=== PATIENT | female | born 1945 | race Caucasian/White ===

== ENCOUNTER 2019-01-20 18:56 | Emergency (ER) | payer MEDICARE, OTHER ==
[2019-01-20 19:09] VITALS: O2SAT 97
--- NOTE | 2019-01-20 19:11 | ERPHSYRPT ---
- History of Present Illness Time Seen by Provider: 01/20/19 19:10 Source: patient, EMS Exam Limitations: no limitations Patient Subjective Stated Complaint: Pt states "I was gardening and I just went over and landed on my left side. ONly my hip hurts." Triage Nursing Assessment: PT arrived via ambulance and placed in room 6. Pt alert and oriented X 3, skin pwd PT able to speak in clear full sentences. PT in no apparent respiratory distress. PT has tenderness to left hip, CSM X 4 Physician History: 73 y/o white female was outside gardening and turned, lost balance and fell onto left hip. pt brought into ED via ambulance. denies dizziness, denies head injury, denies cp. Occurred: just prior to arrival Reason for Fall: lost balance Injuries/Pain Location: pelvis, lower extremity (left) Loss of Consciousness: no loss of consciousness Severity of Pain-Max: moderate Severity of Pain-Current: moderate Modifying Factors: Improves With: movement (hurts) Associated Symptoms (Fall): extremity injury (left hip), muscle spasms, trouble walking, No abdominal pain, No back pain, No confusion, No chest pain, No lightheadedness, No seizures, No shortness of breath Allergies/Adverse Reactions: No Known Drug Allergies Allergy (Verified 01/20/19 19:09) Home Medications: No Home Meds [No Home Meds] 1 [facility] 06/06/14 [History] Hx Tetanus, Diphtheria Vaccination/Date Given: No Hx Influenza Vaccination/Date Given: No Hx Pneumococcal Vaccination/Date Given: No Immunizations Up to Date: Yes - Review of Systems Constitutional: No Symptoms Eyes: No Symptoms Ears, Nose, & Throat: No Symptoms Respiratory: No Symptoms Cardiac: No Symptoms Abdominal/Gastrointestinal: No Symptoms Genitourinary Symptoms: No Symptoms Musculoskeletal: Fall, Injury Skin: No Symptoms Neurological: No Symptoms Psychological: No Symptoms Endocrine: No Symptoms Hematologic/Lymphatic: No Symptoms Immunological/Allergic: No Symptoms All Other Systems: Reviewed and Negative - Past Medical History Pertinent Past Medical History: No Neurological History: No Pertinent History ENT History: No Pertinent History Cardiac History: No Pertinent History Respiratory History: No Pertinent History Endocrine Medical History: No Pertinent History Musculoskeletal History: No Pertinent History GI Medical History: No Pertinent History History: No Pertinent History Psycho-Social History: No Pertinent History Female Reproductive Disorders: No Pertinent History - Past Surgical History Past Surgical History: Yes Neuro Surgical History: No Pertinent History Cardiac: No Pertinent History Respiratory: No Pertinent History Gastrointestinal: No Pertinent History Genitourinary: No Pertinent History Musculoskeletal: Orthopedic Surgery Female Surgical History: No Pertinent History - Social History Smoking Status: Never smoker Exposure to second hand smoke: No Drug Use: none Patient Lives Alone: No - Female History Hx Now: No - Nursing Vital Signs Nursing Vital Signs: Initial Vital Signs Temperature 98.2 F 01/20/19 19:03 Pulse Rate 88 01/20/19 19:03 Respiratory Rate 18 01/20/19 19:03 Blood Pressure 152/83 01/20/19 19:03 O2 Sat by Pulse Oximetry 97 01/20/19 19:03 Pain Scale Pain Intensity 4 - Eda Coma Score Best Eye Response ([place]): (4) open spontaneously Best Verbal Response (Eda): (5) oriented Best Motor Response (Eda): (6) obeys commands Eda Total: 15 - Physical Exam General Appearance: no apparent distress, alert, anxiety Head Injury: no evidence of injury, No active bleeding, No Murcia's Sign, No contusions, No ecchymosis Eye Exam: PERRL/EOMI, eyes nml inspection ENT Exam: airway nml, nml ext.inspection Neck Exam: supple, trachea midline, full range of motion, normal alignment, normal inspection Respiratory/Chest Exam: normal breath sounds, No chest tenderness, No respiratory distress, No ecchymosis, No crepitus Cardiovascular Exam: normal heart sounds Gastrointestinal Exam: soft, normal bowel sounds, No tenderness Rectal Exam: not done Back Exam: normal inspection, normal range of motion, No CVA tenderness, No vertebral tenderness Extremity Exam: limited range of motion (left hip), hip tenderness (left), tenderness (left mid to upper femur) Neurologic Exam: alert, oriented x 3, cooperative, 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 II-XII nml as tested, normal mood/affect Skin Exam: normal color, warm, dry SpO2 Interpretation: normal SpO2: 97 O2 Delivery: Room Air Ordered Tests: Active Orders 24 hr Category Date Time Status Catheter-[place] Hussein STAT Care 01/20/19 19:58 Active EKG-ER Only STAT Care 01/20/19 19:58 Active IV Insertion STAT Care 01/20/19 19:58 Active CHEST 1 VIEW (PORTABLE) Stat Exams 01/20/19 19:59 Taken FEMUR Stat Exams 01/20/19 19:12 Taken HIP UNI (2V) INCL PEL IF DONE Stat Exams 01/20/19 19:12 Taken CBC W DIFF Stat Lab 01/20/19 20:33 Completed CMP Stat Lab 01/20/19 20:33 Completed PROTIME WITH INR Stat Lab 01/20/19 20:33 Completed Medication Summary Generic Name Dose Route Start Last Admin Trade Name Freq PRN Reason Stop Dose Admin Sodium Chloride 1,000 mls @ 100 mls/hr 01/20/19 20:00 01/20/19 20:22 Sodium Chloride 0.9% 1000 Ml IV 02/19/19 19:59 100 mls/hr .Q10H ANDREAS Administration Discontinued Medications Generic Name Dose Route Start Last Admin Trade Name Freq PRN Reason Stop Dose Admin Hydromorphone HCl 0.5 mg 01/20/19 19:58 01/20/19 20:21 Hydromorphone 1 Mg/Ml Ampule IV 01/20/19 19:59 0.5 mg STAT ONE Administration Hydromorphone HCl Confirm 01/20/19 20:17 Hydromorphone 1 Mg/Ml Ampule Administered 01/20/19 20:18 Dose 1 mg .ROUTE .STK-MED ONE Morphine Sulfate 4 mg 01/20/19 19:58 01/20/19 20:22 Morphine Sulfate 4 Mg Inj IV 01/20/19 19:59 Not Given STAT ONE Ondansetron HCl 4 mg 01/20/19 20:17 01/20/19 20:21 Zofran 4 Mg/2 Ml Vial IV 01/20/19 20:18 4 mg STAT ONE Administration Ondansetron HCl Confirm 01/20/19 20:16 Zofran 4 Mg/2 Ml Vial Administered 01/20/19 20:17 Dose 4 mg .ROUTE .STK-MED ONE Lab/Rad Data: Laboratory Result Diagrams 01/20/19 20:33 01/20/19 20:33 Laboratory Results 01/20/19 01/20/19 01/20/19 Range/Units 20:33 20:33 20:33 WBC 7.7 (4.0-10.5) K/mm3 RBC 3.96 L (4.1-5.4) M/mm3 Hgb 12.4 (12.0-16.0) gm/dl Hct 36.8 (35-47) % MCV 92.9 (78-100) fl MCH 31.3 (26-32) pg MCHC 33.7 (32-36) g/dl RDW 13.9 (11.5-14.0) % Plt Count 265 (150-450) K/mm3 MPV 9.7 H (6-9.5) fl Gran % 74.1 H (36.0-66.0) % Eos # (Auto) 0.05 (0-0.5) Absolute Lymphs (auto) 1.33 (1.0-4.6) Absolute Monos (auto) 0.60 (0.0-1.3) Lymphocytes % 17.2 L (24.0-44.0) % Monocytes % 7.8 (0.0-12.0) % Eosinophils % 0.6 (0.00-5.0) % Basophils % 0.3 (0.0-0.4) % Absolute Granulocytes 5.72 (1.4-6.9) Basophils # 0.02 (0-0.4) PT 12.5 H (9.95-12.35) SECONDS INR 1.07 (0.8-3.0) Sodium 131 L (137-145) mmol/L Potassium 4.0 (3.5-5.1) mmol/L Chloride 98 (98-107) mmol/L Carbon Dioxide 21 L (22-30) mmol/L Anion Gap 15.6 H (5-15) MEQ/L BUN 8 (7-17) mg/dL Creatinine 0.49 L (0.52-1.04) mg/dL Estimated GFR > 60.0 ML/MIN Glucose 116 H (74-106) mg/dL Calcium 8.8 (8.4-10.2) mg/dL Total Bilirubin 0.40 (0.2-1.3) mg/dL AST 31 (14-36) U/L ALT 18 (0-35) U/L Alkaline Phosphatase 74 (38-126) U/L Serum Total Protein 7.0 (6.3-8.2) g/dL Albumin 3.9 (3.5-5.0) g/dL - Progress Progress: pain not gone completely, re-examined Progress Note: 01/20/19 21:36 left hip xray-intertrochanteric, comminuted, fx with angulation. fx lesser trochanter. 01/20/19 22:01 spoke with [facility] at [facility] transfer center. told them pt would like dr. henao if possible. [facility] accepts pt for transfer Counseled pt/family regarding: lab results, diagnosis, need for follow-up, rad results - Departure Departure Disposition: Transfer Clinical Impression: Intertrochanteric fracture of left femur Condition: Stable Critical Care Time: No Referrals: DOCTOR,NO FAMILY [Primary Care Provider] -
[2019-01-20] MEDS ORDERED: Hydromorphone 1 mg/ml Ampule IV ONE (19:58)
[2019-01-20] MEDS ORDERED: MORPHINE SULFATE 4 MG INJ IV ONE (19:58)
[2019-01-20] MEDS ORDERED: Sodium Chloride 0.9% 1000 ML 1,000 ML IV SCH (20:00)
[2019-01-20] MEDS ORDERED: Zofran 4 MG/2 ML VIAL ONE (20:16)
[2019-01-20] MEDS ORDERED: Zofran 4 MG/2 ML VIAL IV ONE (20:17)
[2019-01-20] MEDS ORDERED: Hydromorphone 1 mg/ml Ampule ONE (20:17)
[2019-01-20] MEDS ORDERED: Sodium Chloride 0.9% 1000 ML 1,000 ML ONE (20:18)
[2019-01-20 20:37] LABS: BASOPHIL % 0.3 % (0.0-0.4); Basophil (Absolute #) 0.02 (0-0.4); Eosinophil % 0.6 % (0.00-5.0); Eosinophil (Absolute #) 0.05 (0-0.5); Granulocyte Absolute (ANC) 5.72 (1.4-6.9); Granulocytes % 74.1 % (36.0-66.0); Hematocrit 36.8 % (35-47); Hemoglobin 12.4 gm/dl (12.0-16.0); Lymphocyte (Absolute #) 1.33 (1.0-4.6); Lymphocytes % 17.2 % (24.0-44.0); Mean Cell Volume 92.9 fl (78-100); Mean Corpuscular Hemoglobin 31.3 pg (26-32); Mean Corpuscular Hgb Concent. 33.7 g/dl (32-36); Mean Platelet Volume 9.7 fl (6-9.5); Monocytes % 7.8 % (0.0-12.0); Platelet Count 265 K/mm3 (150-450); Red Blood Count 3.96 M/mm3 (4.1-5.4); Red Cell Distribution Width 13.9 % (11.5-14.0); White Blood Count 7.7 K/mm3 (4.0-10.5)
[2019-01-20 20:45] LABS: INR 1.07 (0.8-3.0); PROTIME 12.5 SECONDS (9.95-12.35)
[2019-01-20 21:10] LABS: ALBUMIN 3.9 g/dL (3.5-5.0); ALKALINE PHOSPHATASE 74 U/L (38-126); ANION GAP 15.6 MEQ/L (5-15); BLOOD UREA NITROGEN 8 mg/dL (7-17); CHLORIDE 98 mmol/L (98-107); Calcium 8.8 mg/dL (8.4-10.2); Carbon Dioxide 21 mmol/L (22-30); Creatinine 1 0.49 mg/dL (0.52-1.04); Glucose 116 mg/dL (74-106); SGOT/AST 31 U/L (14-36); SGPT/ALT 18 U/L (0-35); SODIUM 131 mmol/L (137-145)
[2019-01-20 23:12] VITALS: BP 126/81; PULSE 78
--- NOTE | 2019-01-21 09:04 | XRAY ---
Indication: Pain following fall. Comparison: None 2 views of the left femur demonstrates mildly displaced/angulated comminuted intertrochanteric fracture. Elsewhere osteopenia and scattered vascular calcifications. No other bony, articular, or soft tissue abnormalities.
--- NOTE | 2019-01-21 09:06 | XRAY ---
Indication: Cough. Status post fall. Comparison: October 13, 2017. Portable chest remains hyperinflated and clear. Heart and mediastinal structures within normal limits again with prominent right epicardiac fat. Bony thorax intact again with osteopenia, degenerative changes, and old right humeral fracture. Impression: Stable nonacute hyperinflate chest with chronic features.
--- NOTE | 2019-01-21 09:09 | XRAY ---
Indication: Pain following fall. Comparison: None AP pelvis and 2 views of the left hip demonstrates mildly displaced/angulated comminuted left intertrochanteric fracture. Elsewhere osteopenia, moderate lower lumbar degenerative spondylosis, and scattered vascular calcifications. No other bony, articular, or soft tissue abnormalities.
== END 2019-01-20 23:00 | disposition short-term general hospital (02) ==
LOC: ED 18:56
DX: S72.142A Displaced intertrochanteric fracture of left femur, initial encounter for closed fracture (principal); M62.838 Other muscle spasm; W01.198A Fall on same level from slipping, tripping and stumbling with subsequent striking against other object, initial encounter; Y92.096 Garden or yard of other non-institutional residence as the place of occurrence of the external cause
CPT/HCPCS: 36000; 36415; 51702; 71045; 73502; 73552; 80053; 85025; 85610; 93005; 96360; 96361; 96374; 96375; 99284; J1170; J2405